=== PATIENT | female | born 2000 | race African-American/Black ===

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

== ENCOUNTER 2022-03-22 10:01 | Emergency (ER) | payer OTHER ==
[2022-03-22] MEDS ORDERED: Sodium Chloride 0.9% 1,000 ML ONE (10:45)
[2022-03-22] MEDS ORDERED: Metoclopramide HCl 10 MG/2 ML VIAL ONE (10:45)
[2022-03-22] MEDS ORDERED: diphenhydrAMINE 50 MG/ML VIAL ONE (10:45)
[2022-03-22] MEDS ORDERED: Sodium Chloride 0.9% 100 ML ONE (10:46)
== END 2022-03-22 13:40 | disposition home or self-care (01) ==
LOC: NAV ERS 10:01
DX: G43.909 Migraine, unspecified, not intractable, without status migrainosus (principal)
CPT/HCPCS: J1200; J2765; J7050

== ENCOUNTER 2022-04-15 14:59 | Emergency (ER) | payer OTHER | END 2022-04-15 15:38 | disposition home or self-care (01) | LOC: NAV ERS 14:59 | DX: Z48.817 Encounter for surgical aftercare following surgery on the skin and subcutaneous tissue (principal) | CPT/HCPCS: 99282 ==

== ENCOUNTER 2022-05-05 22:03 | Emergency (ER) | payer OTHER | END 2022-05-05 22:33 | disposition home or self-care (01) | LOC: NAV ERS 22:03 | DX: J06.9 Acute upper respiratory infection, unspecified (principal); Z20.822 Contact with and (suspected) exposure to COVID-19 | CPT/HCPCS: 99283; U0003; U0005 ==